=== PATIENT | female | born 1985 | race Caucasian/White ===

== ENCOUNTER 2021-11-23 20:46 | Emergency (ER) | payer SELFPAY ==
[2021-11-23] MEDS ORDERED: ONDANSETRON ODT 4 MG TABLET TL STA (20:53)
[2021-11-23 21:18] LABS: BILIRUBIN,URINE NEGATIVE (NEGATIVE); GLUCOSE, URINE (UA) NEGATIVE (NEGATIVE); KETONES,URINE (UA) NEGATIVE (NEGATIVE); LEUKOCYTE ESTERASE, URINE SMALL (NEGATIVE); NITRITE,URINE NEGATIVE (NEGATIVE); OCCULT BLOOD,URINE NEGATIVE (NEGATIVE); PROTEIN,URINE NEGATIVE (NEGATIVE); UROBILINOGEN,URINE 0.2 (NORMAL) E.U./dL (NORMAL)
[2021-11-23 21:21] LABS: CLARITY,URINE CLEAR (CLEAR); HCG UR QUAL NEGATIVE
[2021-11-23 21:29] LABS: BACTERIA,URINE Few /HPF (None Seen); RBC,URINE 0-5 /HPF (0-5); SQUAMOUS EPITHELIAL CELL,UR MOD Squamous (<= Few)
[2021-11-23 22:53] VITALS: BP 158/86
--- NOTE | 2021-11-23 22:58 | ED Physician Documentation ---
PD HPI ABD PAIN - Stated complaint Stated Complaint: ABD PX,VOMITING - Chief complaint Chief Complaint: Abd Pain - History obtained from History obtained from: Patient - History of Present Illness Timing - onset: How many days ago (1) Timing - details: Gradual onset Pain level now: 8 Quality: Pain Location: RLQ Improved by: Other (nothing) Worsened by: Moving, Palpation Associated symptoms: Nausea, Vomiting. 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 She says she has h/o ovarian cyst and there is some similarity between tonights symptoms and those associated with ov emma cysts. She says she has had laparoscopic surgery for right ovarian cyst but has not had any other pelvic nor abdominal surgery. Review of Systems Constitutional: denies: Fever, Chills, Sweats Cardiac: reports: Reviewed and negative Respiratory: reports: Reviewed and negative GI: reports: Abdominal Pain, Nausea, Vomiting : denies: Dysuria, Frequency, Now EGA PD PAST MEDICAL HISTORY - Past Medical History Past Medical History: Yes Other Past Medical History: PCOS - Allergies Allergies/Adverse Reactions: Allergies Allergy/AdvReac Type Severity Reaction Status Date / Time metoclopramide [From Reglan] Allergy Hives Verified 11/23/21 20:52 NSAIDS (Non-Steroidal Allergy Anaphylaxis Verified 11/23/21 20:52 Anti-Inflamma PD ED PE NORMAL - Vitals Vital signs reviewed: Yes - General General: Alert and oriented X 3, Well developed/nourished, Other (appears uncomfortable, mild/moderate painful distress) - Cardiac Cardiac: RRR, No murmur - Respiratory Respiratory: No respiratory distress, Clear bilaterally - Abdomen Abdomen: Soft, Non distended, Other (RLQ TTP without guarding or rebound) - Back Back: No CVA TTP Results - Vitals Vitals: Oxygen O2 Source Room air - Labs Labs: Laboratory Tests 11/23/21 11/23/21 11/23/21 20:59 23:54 23:54 WBC 7.9 RBC 3.78 L Hgb 9.6 L Hct 31.1 L MCV 82.3 MCH 25.4 L MCHC 30.9 L RDW 17.8 H Plt Count 369 MPV 9.5 Neut # (Auto) 5.1 Lymph # (Auto) 1.8 Alfalfa # (Auto) 0.8 Eos # (Auto) 0.1 Baso # (Auto) 0.1 Absolute Nucleated RBC 0.00 Nucleated RBC % 0.0 Sodium 136 Potassium 3.7 Chloride 101 Carbon Dioxide 24 Anion Gap 11.0 BUN 13 Creatinine 0.8 Estimated GFR (MDRD) 80 L Glucose 129 H Calcium 9.2 Total Bilirubin 0.3 AST 17 ALT 20 Alkaline Phosphatase 72 Total Protein 7.3 Albumin 4.1 Globulin 3.2 Albumin/Globulin Ratio 1.3 Lipase 24 Urine Color YELLOW Urine Clarity CLEAR Urine pH 6.0 Ur Specific [place] 1.010 Urine Protein NEGATIVE Urine Glucose (UA) NEGATIVE Urine Ketones NEGATIVE Urine Occult Blood NEGATIVE Urine Nitrite NEGATIVE Urine Bilirubin NEGATIVE Urine Urobilinogen 0.2 (NORMAL) Ur Leukocyte Esterase SMALL H Urine RBC 0-5 Urine WBC 11-25 H Ur Squamous Epith Cells MOD Squamous H Urine Bacteria Few Ur Microscopic Review INDICATED Urine Culture Comments NOT INDICATED Urine HCG, Qual NEGATIVE - Rads (name of study) CT A/P Radiology: Prelim report reviewed, See rad report PD MEDICAL DECISION MAKING - ED course Complexity details: reviewed results, re-evaluated patient, considered different ial, d/w patient ED course: No concerning findings on blood tests (mild anemia noted). CT A/P performed and results are without acute pathology; of note, findings on CT are s/o previous appendectomy. I went to discuss results with patient and she was not in the room. I assumed she was in the bathroom (room 8) and thus returned to check on her approximately 15-20 minutes later, not in room and her gown is on the floor of bathroom and her possessions and clothes are gone. She did not have an IV in place (multiple tries by different nurses failed), and results of tests did not necessitate immediate return to ED. ED RN did attempt to contact patient using the number listed on [employer] but this number is no longer in service. Departure - Departure Disposition: ED Elope Clinical Impression: Abdominal pain Qualifiers: Abdominal location: right lower quadrant Qualified Code(s): R10.31 - Right lower quadrant pain Condition: Good Instructions: ED Abdominal Pain Female Non-Specific Abdominal Pain, ED Pelvic Pain [facility] Discharge Date/Time: 11/24/21 02:35
[2021-11-23] MEDS ORDERED: HYDROmorphone 1 MG/ML CARPUJECT IM STA (23:11)
[2021-11-23] MEDS ORDERED: PROMETHAZINE 25 MG TABLET PO STA (23:11)
[2021-11-23 23:58] LABS: BASOPHILS # (AUTO) 0.1 10^3/uL (0.0-0.1); BASOPHILS % (AUTO) 0.6 %; EOSINOPHILS # (AUTO) 0.1 10^3/uL (0.0-0.7); EOSINOPHILS % (AUTO) 1.5 %; HCT - HEMATOCRIT 31.1 % (37.0-47.0); HGB - HEMOGLOBIN 9.6 g/dL (12.0-16.0); LYMPHOCYTES # (AUTO) 1.8 10^3/uL (1.5-3.5); LYMPHOCYTES % (AUTO) 22.6 %; MEAN CORPUSCULAR HEMOGLOBIN 25.4 pg (27.0-31.0); MEAN CORPUSCULAR HGB CONC 30.9 g/dL (32.0-36.0); MEAN CORPUSCULAR VOLUME 82.3 fL (81.0-99.0); MEAN PLATELET VOLUME 9.5 fL (7.9-10.8); MONOCYTES # (AUTO) 0.8 10^3/uL (0.0-1.0); MONOCYTES % (AUTO) 9.9 %; NEUTROPHILS # (AUTO) 5.1 10^3/uL (1.5-6.6); NEUTROPHILS % (AUTO) 65.3 %; PLT - PLATELET COUNT 369 10^3/uL (130-450); RED BLOOD COUNT 3.78 10^6/uL (4.20-5.40); RED CELL DISTRIBUTION WIDTH 17.8 % (12.0-15.0); WHITE BLOOD COUNT 7.9 x10^3/uL (4.8-10.8)
[2021-11-24 00:13] LABS: ALBUMIN 4.1 g/dL (3.2-5.5); ALBUMIN/GLOBULIN RATIO 1.3 (1.0-2.2); BILIRUBIN,TOTAL 0.3 mg/dL (0.2-1.0); CALCIUM 9.2 mg/dL (8.5-10.3); CREATININE 0.8 mg/dL (0.4-1.0); POTASSIUM 3.7 mmol/L (3.5-5.0); TOTAL PROTEIN 7.3 g/dL (6.7-8.2)
[2021-11-24] MEDS ORDERED: iohexoL-300 100 ML VIAL ONE (00:13)
[2021-11-24] MEDS ORDERED: HYDROmorphone 1 MG/ML CARPUJECT IM STA (01:20)
[2021-11-24] MEDS ORDERED: diphenhydrAMINE 25 MG CAPSULE PO STA (01:53)
--- NOTE | 2021-11-24 02:09 | CT Report ---
PROCEDURE: Abdomen/Pelvis WO INDICATIONS: RLQ pain, tenderness TECHNIQUE: Noncontrast 5 mm thick sections acquired from the diaphragms to the symphysis. 5 mm coronal and sagi ttal reformats were then performed. For radiation dose reduction, the following was used: automated exposure control, adjustment of mA and/or kV according to patient size. COMPARISON: None. FINDINGS: Image quality: Excellent. Lung bases:There is mild dependent atelectasis bilaterally. Heart: Heart is normal in size. ABDOMEN: Liver: No mass lesion. Gallbladder: Within normal limits without calcified gallstones. Biliary ducts: No biliary ductal dilatation. Pancreas: Unremarkable. Spleen: Normal in size. Adrenal Glands: No adrenal nodules. Kidneys and Ureters: No hydronephrosis. Stomach and Bowel: Stomach, small bowel loops, and colon are normal in caliber and wall thickness. T here are surgical sutures along the cecum likely related to prior appendectomy. No pericecal inflamma tory changes. There is colonic diverticulosis without acute diverticulitis. Peritoneum: No abnormal intraperitoneal fluid. No free air. Ventral Wall: No hernia. Abdominal Nodes: No retroperitoneal or mesenteric adenopathy by size criteria. Vessels: Aorta and inferior vena cava are normal in size. PELVIS: Pelvic Organs: Unremarkable. Bladder: Unremarkable. Pelvic Nodes: No enlarged lymph nodes. Miscellaneous: No inguinal hernias are seen. Bones: Visualized osseous structures demonstrate no suspicious focal lesions. IMPRESSION: 1. No definite acute intra-abdominal abnormality. Specifically, the appendix appears surgically absen t. 2. Colonic diverticulosis without acute diverticulitis. Reviewed by: Zohaib Farias MD on 11/24/2021 2:08 AM PDT Approved by: Zohaib Farias MD on 11/24/2021 2:08 AM PDT Station ID: [id number]
== END 2021-11-24 02:35 | disposition left against medical advice (07) ==
LOC: ED 20:46
DX: R10.31 Right lower quadrant pain (principal)
CPT/HCPCS: 36415; 74176; 80053; 81001; 81025; 83690; 85025; 99282; 99284; A9270; J1170; Q0162; Q0169; 81003; 87086